=== PATIENT | female | born 1995 | race Caucasian/White ===

== ENCOUNTER 2016-04-18 09:35 | Emergency (ER) | payer OTHER ==
[~2016-04-18] VITALS: Ht 170.2 cm; Wt 58.2 kg
[~2016-04-18 09:35] MED LIST: APRI 0.15 MG-0.1 TAB PO
[2016-04-18 09:37] VITALS: BP 126/95; TEMP 98.6
[2016-04-18 10:16] LABS: BASO # 0.1 (0.0-0.2); EOS # 0.9 (0.0-0.7); GRAN # 5.8 (1.4-6.5); GRAN % 55.9 % (42.2-75.2); HEMATOCRIT 39.1 % (37.0-47.0); HEMOGLOBIN 13.3 g/dl (12.5-16.0); LYMPH % 28.4 % (20.0-51.0); MEAN CELL VOLUME 91 fl (80.0-100.0); MEAN CORPUSCULAR HEMOGLOBIN 31 pg (27.0-31.0); MEAN CORPUSCULAR HGB CONC 34 g/dl (33.0-37.0); MEAN PLATELET VOLUME 9.5 fl (7.4-10.4); MONO # 0.6 (0.1-0.6); MONO % 5.5 % (1.7-9.3); PLATELET COUNT 313 K/mm3 (130-400); RED BLOOD COUNT 4.32 M/mm3 (4.10-5.30); REDCELL DISTRIBUTION WIDTH-CV 12.4 % (11.5-14.5); WHITE BLOOD COUNT 10.4 K/mm3 (4.8-10.8)
[2016-04-18 10:45] LABS: ADJUSTED CALCIUM 8.9 mg/dL (8.4-10.2); ALBUMIN 4.1 gm/dL (3.5-5.0); BILIRUBIN,TOTAL 1.3 mg/dL (0.0-1.0); CREATININE, serum 0.83 mg/dL (0.52-1.25); POTASSIUM 3.9 mmol/L (3.4-5.0); TOTAL PROTEIN 7.6 gm/dL (6.4-8.2)
[2016-04-18 10:56] LABS: PH 5 (5-8); URINE APPEARANCE Hazy; URINE BACTERIA None Seen /hpf; URINE BILIRUBIN Negative (NEGATIVE); URINE BLOOD Negative (NEGATIVE); URINE COLOR Yellow; URINE GLUCOSE Negative (NEGATIVE); URINE KETONE Trace (NEGATIVE); URINE RBC 0-2 /hpf; URINE UROBILINOGEN Negative (NEGATIVE)
[2016-04-18] MEDS ORDERED: NORCO 325 MG-51 TAB PO (14:25)
[2016-04-18] MEDS ORDERED: CARAFATE 1GM1 G PO (14:25)
[2016-04-18 14:44] VITALS: PULSE 65
== END 2016-04-18 14:45 | disposition home or self-care (01) ==
LOC: COL.ER 09:35
PROVIDERS: Emergency Medicine
DX: K29.70 Gastritis, unspecified, without bleeding (principal); R07.81 Pleurodynia
CPT/HCPCS: J2405; J7030; Q9967